=== PATIENT | male | born 1995 | race Caucasian/White ===

== ENCOUNTER 2018-01-25 00:42 | Emergency (ER) | payer BC ==
[~2018-01-25] VITALS: Ht 180.3 cm; Wt 99.1 kg
[2018-01-25 00:44] VITALS: BP 136/94; TEMP 98.9
[2018-01-25 01:21] LABS: CALCIUM 9.3 mg/dL (8.4-10.2); CREATININE, serum 0.82 mg/dL (0.66-1.25); POTASSIUM 3.9 mmol/L (3.4-5.0)
[2018-01-25 01:23] LABS: BASO % 0.3 % (0.0-2.0); EOS % 0.6 % (0-4.0); GRAN % 69.9 % (42.2-75.2); HEMATOCRIT 43.1 % (42.0-52.0); LYMPH # 1.5 (1.2-3.4); LYMPH % 20.3 % (20.0-51.0); MEAN CELL VOLUME 87 fl (80.0-100.0); MEAN CORPUSCULAR HEMOGLOBIN 30 pg (27.0-31.0); MEAN CORPUSCULAR HGB CONC 35 g/dl (33.0-37.0); MEAN PLATELET VOLUME 10.4 fl (7.4-10.4); MONO # 0.6 (0.1-0.6); MONO % 8.5 % (1.7-9.3); PLATELET COUNT 145 K/mm3 (130-400); RED BLOOD COUNT 4.93 M/mm3 (4.20-5.60); REDCELL DISTRIBUTION WIDTH-CV 12.8 % (11.5-14.5)
[2018-01-25] MEDS ORDERED: CLARITIN 1010 MG/TAB PO (01:55)
[2018-01-25] MEDS ORDERED: ZOFRAN 4MG T4 MG/TAB PO (02:15)
[2018-01-25 02:24] VITALS: PULSE 75
== END 2018-01-25 02:22 | disposition home or self-care (01) ==
LOC: COL.ER 00:42
PROVIDERS: Emergency Medicine
DX: R51 Headache (principal); R11.0 Nausea; R53.83 Other fatigue